=== PATIENT | male | born 1955 | race Caucasian/White ===

== ENCOUNTER 2017-08-10 19:01 | Emergency (ER) | payer SELFPAY ==
[~2017-08-10] VITALS: Ht 167.6 cm; Wt 81.8 kg
[~2017-08-10 19:01] MED LIST: NOCURR
[2017-08-10 19:29] VITALS: BP 148/82
[2017-08-10] MEDS ORDERED: IBUPROFEN 800 MG TABLET PO ONE (20:15)
== END 2017-08-10 21:50 | disposition home or self-care (01) ==
LOC: EMS 19:02
DX: S60.041A Contusion of right ring finger without damage to nail, initial encounter (principal); F17.210 Nicotine dependence, cigarettes, uncomplicated; W20.8XXA Other cause of strike by thrown, projected or falling object, initial encounter; Y93.89 Activity, other specified; Y92.89 Other specified places as the place of occurrence of the external cause; Y99.8 Other external cause status
CPT/HCPCS: 99284

== ENCOUNTER 2017-10-16 13:18 | Emergency (ER) | payer MEDICAID ==
[~2017-10-16] VITALS: Ht 170.2 cm; Wt 75.0 kg
[2017-10-16 13:46] LABS: BASOPHILS % (AUTO) 0.6 % (0.0-2.0); HEMATOCRIT 39.5 % (41-53); HEMOGLOBIN 13.6 g/dL (13.5-17.5); LYMPHOCYTES # (AUTO) 2.3 K/uL (1.0-4.8); MEAN CORPUSCULAR HEMOGLOBIN 31.8 pg (26.0-34.0); MEAN CORPUSCULAR HGB CONC 34.5 G/dL (31.0-37.0); MEAN CORPUSCULAR VOLUME 92 fL (80-100); MONOCYTES # (AUTO) 0.8 K/uL (0.1-1.0); NEUTROPHILS # (AUTO) 6.2 K/uL (1.8-7.7); NEUTROPHILS % (AUTO) 64.4 % (40.0-70.0); PLATELET COUNT (AUTO) 274 K/uL (150-450); RED BLOOD CELL COUNT(AUTO) 4.27 MIL/uL (4.50-5.90); RED CELL DISTRIBUTION WIDTH 12.3 % (11.5-14.5)
[2017-10-16 13:54] LABS: ANION GAP 8 mmol/L (8-16); CALCIUM, TOTAL 8.3 mg/dL (8.8-10.5); CARBON DIOXIDE 28 mmol/L (22-29); CHLORIDE 105 mmol/L (98-107); CREATININE 0.91 mg/dL (0.60-1.30); GLOMERULAR FILTR. RATE CALC > 60 mL/min (>60); GLUCOSE,RANDOM 95 mg/dL (70-110); POTASSIUM 4.8 mmol/L (3.5-5.1); SODIUM SERUM 141 mmol/L (136-145); UREA NITROGEN, BLOOD 24 mg/dL (7-18)
[2017-10-16 13:59] LABS: ALANINE AMINOTRANSFERASE 34 U/L (12-78); ALBUMIN 3.8 g/dL (3.4-5.0); ALKALINE PHOSPHATASE 120 U/L (46-116); ASPARTATE AMINOTRANSFERASE 26 U/L (15-37); BILIRUBIN,TOTAL 0.4 mg/dL (0.1-1.0); TOTAL PROTEIN, SERUM 7.3 g/dL (6.4-8.2)
[2017-10-16 14:14] LABS: AMPHET/METH SCREEN,URINE POSITIVE (NEGATIVE); BARBITURATE SCREEN, URINE NEGATIVE (NEGATIVE); BENZODIAZEPINES SCREEN,URINE NEGATIVE (NEGATIVE); CANNABINOID SCREEN,URINE POSITIVE (NEGATIVE); COCAINE SCREEN,URINE NEGATIVE (NEGATIVE); METHADONE SCREEN, URINE NEGATIVE (NEGATIVE); OPIATE SCREEN,URINE POSITIVE (NEGATIVE)
[2017-10-16 14:15] LABS: PHENCYCLIDINE SCREEN,URINE NEGATIVE (NEGATIVE)
[2017-10-16 17:30] VITALS: BP 139/78
[2017-10-17] MEDS ORDERED: MIRT15 PO (13:18)
== END 2017-10-16 17:44 | disposition home or self-care (01) ==
LOC: EMS 13:20
DX: F25.9 Schizoaffective disorder, unspecified (principal); F17.210 Nicotine dependence, cigarettes, uncomplicated; F11.10 Opioid abuse, uncomplicated; F32.9 Major depressive disorder, single episode, unspecified; F19.90 Other psychoactive substance use, unspecified, uncomplicated
CPT/HCPCS: 36415; 80053; 80307; 85025; 99284; 99406; G0480

== ENCOUNTER 2017-10-17 13:04 | Inpatient (IN) | payer MEDICAID ==
[~2017-10-17] VITALS: Ht 172.7 cm; Wt 80.0 kg
[2017-10-17] MEDS ORDERED: MIRT15 PO (13:18)
[2017-10-17 13:39] LABS: BASOPHILS % (AUTO) 0.8 % (0.0-2.0); EOSINOPHILS % (AUTO) 1.6 % (1.0-6.0); HEMOGLOBIN 14.1 g/dL (13.5-17.5); LYMPHOCYTES # (AUTO) 1.9 K/uL (1.0-4.8); LYMPHOCYTES % (AUTO) 21.5 % (22.0-44.0); MEAN CORPUSCULAR HEMOGLOBIN 32.2 pg (26.0-34.0); MEAN CORPUSCULAR HGB CONC 35.3 G/dL (31.0-37.0); MEAN CORPUSCULAR VOLUME 91 fL (80-100); MONOCYTES # (AUTO) 0.8 K/uL (0.1-1.0); MONOCYTES % (AUTO) 8.7 % (2.0-9.0); NEUTROPHILS # (AUTO) 5.9 K/uL (1.8-7.7); NEUTROPHILS % (AUTO) 67.4 % (40.0-70.0); PLATELET COUNT (AUTO) 298 K/uL (150-450); RED BLOOD CELL COUNT(AUTO) 4.39 MIL/uL (4.50-5.90); RED CELL DISTRIBUTION WIDTH 12.6 % (11.5-14.5)
[2017-10-17 13:49] LABS: ANION GAP 8 mmol/L (8-16); CALCIUM, TOTAL 8.5 mg/dL (8.8-10.5); CARBON DIOXIDE 26 mmol/L (22-29); CHLORIDE 103 mmol/L (98-107); CREATININE 0.79 mg/dL (0.60-1.30); GLOMERULAR FILTR. RATE CALC > 60 mL/min (>60); GLUCOSE,RANDOM 97 mg/dL (70-110); POTASSIUM 4.9 mmol/L (3.5-5.1); SODIUM SERUM 137 mmol/L (136-145); UREA NITROGEN, BLOOD 15 mg/dL (7-18)
[2017-10-17 13:53] LABS: AMPHET/METH SCREEN,URINE POSITIVE (NEGATIVE); BARBITURATE SCREEN, URINE NEGATIVE (NEGATIVE); BENZODIAZEPINES SCREEN,URINE NEGATIVE (NEGATIVE); CANNABINOID SCREEN,URINE POSITIVE (NEGATIVE); COCAINE SCREEN,URINE NEGATIVE (NEGATIVE); METHADONE SCREEN, URINE NEGATIVE (NEGATIVE); OPIATE SCREEN,URINE POSITIVE (NEGATIVE); PHENCYCLIDINE SCREEN,URINE NEGATIVE (NEGATIVE)
[2017-10-17 13:58] LABS: ALANINE AMINOTRANSFERASE 36 U/L (12-78); ALBUMIN 3.8 g/dL (3.4-5.0); ALKALINE PHOSPHATASE 116 U/L (46-116); ASPARTATE AMINOTRANSFERASE 26 U/L (15-37); BILIRUBIN,TOTAL 0.5 mg/dL (0.1-1.0); TOTAL PROTEIN, SERUM 7.3 g/dL (6.4-8.2)
[2017-10-17 18:30] VITALS: BP 162/70
[2017-10-17] MEDS: LORazepam 2 MG TABLET PO PRN (19:27)
[2017-10-17] MEDS ORDERED: LOPERAMIDE HCL 2 MG CAPSULE PO PRN (19:45)
[2017-10-17] MEDS ORDERED: BACITRACIN 28.4 GM OINTMENT TP PRN (19:45)
[2017-10-17] MEDS ORDERED: MAG HYDROX/AL HYDROX/SIMETH ES 30 ML SUSPENSION UDCUP PO PRN (19:45)
[2017-10-17] MEDS ORDERED: MAGNESIUM HYDROXIDE SUSPENSION 30 ML UDCUP PO PRN (19:45)
[2017-10-17] MEDS ORDERED: PETROLATUM,WHITE 71 GM JELLY TP PRN (19:45)
[2017-10-17] MEDS ORDERED: ONDANSETRON HCL 4 MG TABLET PO PRN (19:45)
[2017-10-17] MEDS ORDERED: ALBUTEROL SULFATE HFA 90 MCG/PUFF 8 GM INHALER IH PRN (19:45)
[2017-10-17] MEDS ORDERED: CloNIDine HCL 0.1 MG TABLET PO PRN (19:45)
[2017-10-17] MEDS ORDERED: BENZOCAINE/MENTHOL LOZENGE MM PRN (19:45)
[2017-10-17] MEDS ORDERED: PNEUMOCOCCAL VACCINE POLYVALENT 0.5 ML VIAL [PPSV23] IM ONE (20:15)
[2017-10-17 20:20] VITALS: BP 104/62
[2017-10-18 06:27] VITALS: BP 110/68
[2017-10-18] MEDS: DOCUSATE SODIUM 100 MG CAPSULE PO SCH (08:39)
[2017-10-18] MEDS: NICOTINE 21 MG/24 HOUR PATCH TD SCH (08:39)
[2017-10-18] MEDS: OMEPRAZOLE 20 MG CAPSULE PO SCH (08:39)
[2017-10-18 08:45] LABS: CHOL/HDL RATIO 2.9 (4.2-7.3); FREE T4 (FREE THYROXINE) 1.22 ng/dL (0.76-1.46); THYROID STIMULATING HORMONE 1.56 uIU/mL (0.36-3.74)
[2017-10-18 08:50] VITALS: BP 110/64
[2017-10-18] MEDS: LORazepam 2 MG TABLET PO PRN ×2 (09:08→16:18)
[2017-10-18 16:00] VITALS: BP 130/75
[2017-10-18] MEDS: HALOPERIDOL 5 MG TABLET PO PRN (16:30)
[2017-10-18] MEDS: MIRTAZAPINE 15 MG TABLET PO SCH (21:11)
[2017-10-18] MEDS: RisperiDONE 1 MG TABLET PO SCH (21:11)
[2017-10-19] VITALS: BP 122/60
[2017-10-19 08:22] VITALS: BP 122/58
[2017-10-19] MEDS: DOCUSATE SODIUM 100 MG CAPSULE PO SCH (08:32)
[2017-10-19] MEDS: NICOTINE 21 MG/24 HOUR PATCH TD SCH (08:32)
[2017-10-19] MEDS: OMEPRAZOLE 20 MG CAPSULE PO SCH (08:32)
[2017-10-19] MEDS: HALOPERIDOL 5 MG TABLET PO PRN (16:07)
[2017-10-19] MEDS: LORazepam 2 MG TABLET PO PRN (16:07)
[2017-10-19 16:37] VITALS: BP 145/69
[2017-10-19] MEDS: RisperiDONE 1 MG TABLET PO SCH (20:40)
[2017-10-19] MEDS: MIRTAZAPINE 15 MG TABLET PO SCH (20:40)
[2017-10-20 01:34] VITALS: BP 119/63
[2017-10-20] MEDS: DOCUSATE SODIUM 100 MG CAPSULE PO SCH (08:35)
[2017-10-20] MEDS: NICOTINE 21 MG/24 HOUR PATCH TD SCH (08:35)
[2017-10-20] MEDS: OMEPRAZOLE 20 MG CAPSULE PO SCH (08:35)
[2017-10-20 12:00] VITALS: BP 120/65
[2017-10-20 16:00] VITALS: BP 132/70
[2017-10-20] MEDS: IBUPROFEN 600 MG TABLET PO PRN (16:06)
[2017-10-20] MEDS: MIRTAZAPINE 15 MG TABLET PO SCH (20:28)
[2017-10-20] MEDS: RisperiDONE 1 MG TABLET PO SCH (20:29)
[2017-10-21 01:44] VITALS: BP 145/85
[2017-10-21] MEDS: ZOLPIDEM TARTRATE 10 MG TABLET PO PRN ×2 (01:53→21:52)
[2017-10-21] MEDS: LORazepam 2 MG TABLET PO PRN ×2 (03:32→16:56)
[2017-10-21] MEDS: DOCUSATE SODIUM 100 MG CAPSULE PO SCH (08:23)
[2017-10-21] MEDS: RisperiDONE 1 MG TABLET PO SCH ×2 (08:23→21:52)
[2017-10-21] MEDS: NICOTINE 21 MG/24 HOUR PATCH TD SCH (08:23)
[2017-10-21 08:24] VITALS: BP 140/69
[2017-10-21] MEDS: OMEPRAZOLE 20 MG CAPSULE PO SCH (08:24)
[2017-10-21] MEDS: ACETAMINOPHEN 325 MG TABLET PO PRN (12:19)
[2017-10-21 12:20] VITALS: BP 111/67
[2017-10-21 12:34] LABS: GLUCOMETER DEV NAME(LOC) BV2S 2; GLUCOSE,POINT OF CARE 108 MG/DL (70-110)
[2017-10-21 16:39] VITALS: BP 135/81
[2017-10-21] MEDS: IBUPROFEN 600 MG TABLET PO PRN (16:56)
[2017-10-21] MEDS: HALOPERIDOL 5 MG TABLET PO PRN (21:52)
[2017-10-21] MEDS: MIRTAZAPINE 30 MG TABLET PO SCH (21:52)
[2017-10-22 00:01] VITALS: BP 141/93
[2017-10-22] MEDS: LORazepam 2 MG TABLET PO PRN ×3 (00:05→16:18)
[2017-10-22] MEDS: NICOTINE 21 MG/24 HOUR PATCH TD SCH (08:31)
[2017-10-22] MEDS: OMEPRAZOLE 20 MG CAPSULE PO SCH (08:31)
[2017-10-22] MEDS: DOCUSATE SODIUM 100 MG CAPSULE PO SCH (08:31)
[2017-10-22] MEDS: RisperiDONE 1 MG TABLET PO SCH ×2 (08:31→21:13)
[2017-10-22 08:32] VITALS: BP 125/69
[2017-10-22 13:29] VITALS: BP 130/78
[2017-10-22] MEDS: IBUPROFEN 600 MG TABLET PO PRN (13:29)
[2017-10-22] MEDS: HALOPERIDOL 5 MG TABLET PO PRN (13:29)
[2017-10-22 16:03] VITALS: BP 130/78
[2017-10-22] MEDS: ACETAMINOPHEN 325 MG TABLET PO PRN (16:18)
[2017-10-22] MEDS: MIRTAZAPINE 30 MG TABLET PO SCH (21:13)
[2017-10-23 00:37] VITALS: BP 100/67
[2017-10-23] MEDS: ZOLPIDEM TARTRATE 10 MG TABLET PO PRN ×2 (01:21→20:16)
[2017-10-23] MEDS: LORazepam 2 MG TABLET PO PRN ×2 (01:21→16:07)
[2017-10-23 08:00] VITALS: BP 136/76
[2017-10-23] MEDS: OMEPRAZOLE 20 MG CAPSULE PO SCH (08:41)
[2017-10-23] MEDS: DOCUSATE SODIUM 100 MG CAPSULE PO SCH (08:41)
[2017-10-23] MEDS: RisperiDONE 1 MG TABLET PO SCH ×2 (08:41→20:16)
[2017-10-23] MEDS: NICOTINE 21 MG/24 HOUR PATCH TD SCH (08:42)
[2017-10-23] MEDS: IBUPROFEN 600 MG TABLET PO PRN (12:03)
[2017-10-23] MEDS: HALOPERIDOL 5 MG TABLET PO PRN (14:03)
[2017-10-23 16:12] VITALS: BP 145/84
[2017-10-23] MEDS: MIRTAZAPINE 15 MG TABLET PO SCH (20:16)
[2017-10-23] MEDS ORDERED: MIRTAZAPINE 30 MG TABLET PO SCH (21:00)
[2017-10-24 01:29] VITALS: BP 131/75
[2017-10-24] MEDS: HALOPERIDOL 5 MG TABLET PO PRN ×2 (01:31→16:02)
[2017-10-24] MEDS: LORazepam 2 MG TABLET PO PRN ×2 (03:21→10:46)
[2017-10-24 08:19] VITALS: BP 115/69
[2017-10-24] MEDS: DOCUSATE SODIUM 100 MG CAPSULE PO SCH (09:26)
[2017-10-24] MEDS: RisperiDONE 1 MG TABLET PO SCH ×2 (09:26→20:31)
[2017-10-24] MEDS: OMEPRAZOLE 20 MG CAPSULE PO SCH (09:26)
[2017-10-24] MEDS: NICOTINE 21 MG/24 HOUR PATCH TD SCH (09:31)
[2017-10-24 16:31] VITALS: BP 126/83
[2017-10-24 19:06] VITALS: BP 128/79
[2017-10-24] MEDS: IBUPROFEN 600 MG TABLET PO PRN (19:06)
[2017-10-24] MEDS: MIRTAZAPINE 15 MG TABLET PO SCH (20:31)
[2017-10-24] MEDS: ZOLPIDEM TARTRATE 10 MG TABLET PO PRN (22:53)
[2017-10-25 01:45] VITALS: BP 117/76
[2017-10-25] MEDS: HALOPERIDOL 5 MG TABLET PO PRN ×2 (03:21→16:22)
[2017-10-25] MEDS: DOCUSATE SODIUM 100 MG CAPSULE PO SCH (08:29)
[2017-10-25] MEDS: OMEPRAZOLE 20 MG CAPSULE PO SCH (08:30)
[2017-10-25] MEDS: NICOTINE 21 MG/24 HOUR PATCH TD SCH (08:30)
[2017-10-25] MEDS: RisperiDONE 1 MG TABLET PO SCH ×2 (08:30→20:48)
[2017-10-25 08:31] VITALS: BP 116/69
[2017-10-25 11:19] VITALS: BP 122/73
[2017-10-25] MEDS: LORazepam 2 MG TABLET PO PRN (11:19)
[2017-10-25] MEDS: IBUPROFEN 600 MG TABLET PO PRN (11:19)
[2017-10-25 16:02] VITALS: BP 134/77
[2017-10-25] MEDS: MIRTAZAPINE 15 MG TABLET PO SCH (20:47)
[2017-10-25] MEDS ORDERED: MIRTAZAPINE 30 MG TABLET PO SCH (21:00)
[2017-10-25] MEDS ORDERED: TraZODone HCL 50 MG TABLET PO SCH (21:00)
[2017-10-26 01:55] VITALS: BP 126/76
[2017-10-26 08:26] VITALS: BP 109/62
[2017-10-26] MEDS: OMEPRAZOLE 20 MG CAPSULE PO SCH (08:28)
[2017-10-26] MEDS: DOCUSATE SODIUM 100 MG CAPSULE PO SCH (08:29)
[2017-10-26] MEDS: RisperiDONE 1 MG TABLET PO SCH (08:29)
[2017-10-26] MEDS: NICOTINE 21 MG/24 HOUR PATCH TD SCH (08:32)
[2017-10-26 10:28] VITALS: BP 136/74
[2017-10-26] MEDS: IBUPROFEN 600 MG TABLET PO PRN (10:30)
[2017-10-26] MEDS ORDERED: RISP1 PO (12:27)
[2017-10-26] MEDS ORDERED: TRAZ-144 PO (12:27)
== END 2017-10-26 12:15 | disposition home or self-care (01) | DRG 751 ==
LOC: EMS 13:07 → B2S 17:06
DX: F33.3 Major depressive disorder, recurrent, severe with psychotic symptoms (principal); R45.851 Suicidal ideations; E83.51 Hypocalcemia; F41.0 Panic disorder [episodic paroxysmal anxiety]; F11.10 Opioid abuse, uncomplicated; F12.90 Cannabis use, unspecified, uncomplicated; F15.10 Other stimulant abuse, uncomplicated; F17.200 Nicotine dependence, unspecified, uncomplicated; Z71.6 Tobacco abuse counseling; Z59.0 Homelessness; Z71.51 Drug abuse counseling and surveillance of drug abuser; Z90.49 Acquired absence of other specified parts of digestive tract
CPT/HCPCS: 82306; 84439; 84443; 99285; G0480

== ENCOUNTER 2019-03-28 15:29 | Emergency (ER) | payer MEDICAID, MEDICARE, OTHER ==
[~2019-03-28] VITALS: Ht 172.7 cm; Wt 72.7 kg
[~2019-03-28 15:29] MED LIST changes: +MIRT15 PO; -NOCURR; +RISP1 PO; +TRAZ-252 PO
[2019-03-28 17:27] VITALS: BP 148/80
[2019-03-28] MEDS ORDERED: SULFAMETHOX/TRIMETH DS 800-160 MG/TABLET PO ONE (17:45)
[2019-03-28] MEDS ORDERED: CEPHALEXIN MONOHYDRATE 500 MG CAPSULE PO ONE (17:45)
== END 2019-03-28 18:08 | disposition home or self-care (01) ==
LOC: EMS 15:30
DX: S80.822A Blister (nonthermal), left lower leg, initial encounter (principal); S80.821A Blister (nonthermal), right lower leg, initial encounter; L03.116 Cellulitis of left lower limb; L03.115 Cellulitis of right lower limb; F17.210 Nicotine dependence, cigarettes, uncomplicated; F11.90 Opioid use, unspecified, uncomplicated; F15.90 Other stimulant use, unspecified, uncomplicated; Z98.890 Other specified postprocedural states; X58.XXXA Exposure to other specified factors, initial encounter; Y93.89 Activity, other specified; Y92.89 Other specified places as the place of occurrence of the external cause; Y99.8 Other external cause status

== ENCOUNTER 2019-07-11 01:57 | Emergency (ER) | payer MEDICARE ==
[~2019-07-11] VITALS: Ht 170.2 cm; Wt 72.7 kg
[2019-07-11 02:01] VITALS: BP 156/65
[2019-07-11] MEDS ORDERED: DiphenhydrAMINE HCL 25 MG CAPSULE PO ONE (02:15)
== END 2019-07-11 02:32 | disposition home or self-care (01) ==
LOC: EMS 01:59
DX: B86 Scabies (principal); F17.210 Nicotine dependence, cigarettes, uncomplicated; F19.90 Other psychoactive substance use, unspecified, uncomplicated; F11.90 Opioid use, unspecified, uncomplicated
CPT/HCPCS: 99406

== ENCOUNTER 2019-07-16 21:13 | Emergency (ER) | payer MEDICARE ==
[~2019-07-16] VITALS: Ht 170.2 cm; Wt 77.3 kg
[2019-07-17] MEDS ORDERED: LORATADINE 10 MG TABLET PO ONE (01:30)
[2019-07-17] MEDS ORDERED: PERMETHRIN 5% 60 GM CREAM TP ONE (01:30)
[2019-07-17 01:54] VITALS: BP 145/91
== END 2019-07-17 01:55 | disposition home or self-care (01) ==
LOC: EMS 21:15
DX: B86 Scabies (principal); F11.90 Opioid use, unspecified, uncomplicated; F15.90 Other stimulant use, unspecified, uncomplicated; F17.210 Nicotine dependence, cigarettes, uncomplicated; Z90.49 Acquired absence of other specified parts of digestive tract; Z98.890 Other specified postprocedural states; Z59.0 Homelessness

== ENCOUNTER 2019-08-12 02:37 | Emergency (ER) | payer MEDICARE, SELFPAY ==
[~2019-08-12] VITALS: Ht 170.2 cm; Wt 70.5 kg
[2019-08-12 02:56] VITALS: BP 137/72
[2019-08-12] MEDS ORDERED: KETOROLAC TROMETHAMINE 30 MG/ML VIAL IM ONE (03:00)
== END 2019-08-12 04:07 | disposition home or self-care (01) ==
LOC: EMS 02:38
DX: S60.221A Contusion of right hand, initial encounter (principal); F41.9 Anxiety disorder, unspecified; F17.210 Nicotine dependence, cigarettes, uncomplicated; F11.90 Opioid use, unspecified, uncomplicated; F19.90 Other psychoactive substance use, unspecified, uncomplicated; Z59.0 Homelessness; Z86.73 Personal history of transient ischemic attack (TIA), and cerebral infarction without residual deficits; W22.01XA Walked into wall, initial encounter; Y93.89 Activity, other specified; Y92.89 Other specified places as the place of occurrence of the external cause; Y99.8 Other external cause status
CPT/HCPCS: 73130; 96372; 99283; J1885

== ENCOUNTER 2019-08-18 07:41 | Emergency (ER) | payer MEDICARE, SELFPAY ==
[~2019-08-18] VITALS: Ht 172.7 cm; Wt 70.5 kg
[2019-08-18] MEDS ORDERED: ACETAMINOPHEN 500 MG TABLET PO ONE (08:45)
[2019-08-18 09:28] VITALS: BP 144/88
== END 2019-08-18 09:56 | disposition left against medical advice (07) ==
LOC: EMS 07:46
DX: B34.9 Viral infection, unspecified (principal); R51 Headache; R19.7 Diarrhea, unspecified; F41.9 Anxiety disorder, unspecified; I10 Essential (primary) hypertension; F17.210 Nicotine dependence, cigarettes, uncomplicated; F11.90 Opioid use, unspecified, uncomplicated; F19.90 Other psychoactive substance use, unspecified, uncomplicated; Z86.73 Personal history of transient ischemic attack (TIA), and cerebral infarction without residual deficits

== ENCOUNTER 2020-10-27 11:44 | Emergency (ER) | payer MEDICARE, MEDICAID ==
[~2020-10-27] VITALS: Ht 170.2 cm; Wt 68.2 kg
[2020-10-27 11:52] VITALS: BP 131/82
== END 2020-10-27 12:10 | disposition left against medical advice (07) ==
LOC: EMS 11:47
DX: R44.0 Auditory hallucinations (principal); Z53.21 Procedure and treatment not carried out due to patient leaving prior to being seen by health care provider

== ENCOUNTER 2023-08-15 20:02 | Emergency (ER) | payer MEDICARE, MEDICAID ==
[~2023-08-15] VITALS: Ht 172.7 cm; Wt 75.0 kg
[2023-08-15 20:16] VITALS: BP 151/85; PULSE 90; RESP 18; TEMP 98.5
[2023-08-15 21:49] LABS: BASOPHILS % (AUTO) 0.9 % (0.0-2.0); EOSINOPHILS % (AUTO) 1.7 % (1.0-6.0); HEMATOCRIT 42.9 % (41-53); HEMOGLOBIN 14.4 g/dL (13.5-17.5); LYMPHOCYTES # (AUTO) 2.7 K/uL (1.0-4.8); LYMPHOCYTES % (AUTO) 25.3 % (22.0-44.0); MEAN CORPUSCULAR HEMOGLOBIN 31.6 pg (26.0-34.0); MEAN CORPUSCULAR HGB CONC 33.6 G/dL (31.0-37.0); MEAN CORPUSCULAR VOLUME 94 fL (80-100); MONOCYTES # (AUTO) 0.8 K/uL (0.1-1.0); MONOCYTES % (AUTO) 7.4 % (2.0-9.0); NEUTROPHILS # (AUTO) 6.8 K/uL (1.8-7.7); NEUTROPHILS % (AUTO) 64.7 % (40.0-70.0); PLATELET COUNT (AUTO) 347 K/uL (150-450); RED BLOOD CELL COUNT(AUTO) 4.57 MIL/uL (4.50-5.90); RED CELL DISTRIBUTION WIDTH 13.7 % (11.5-14.5); WHITE BLOOD COUNT (AUTO) 10.6 K/uL (4.5-11.0)
[2023-08-15 22:01] LABS: ANION GAP 10 mmol/L (8-16); CARBON DIOXIDE 27 mmol/L (22-29); CHLORIDE 106 mmol/L (98-107); CREATININE 0.95 mg/dL (0.60-1.30); GLUCOSE,RANDOM 102 mg/dL (70-110); POTASSIUM 4.7 mmol/L (3.5-5.1); SODIUM SERUM 143 mmol/L (136-145); UREA NITROGEN, BLOOD 30 mg/dL (7-18)
[2023-08-15 22:02] LABS: CALCIUM, TOTAL 9.1 mg/dL (8.8-10.5); GLOMERULAR FILTR. RATE CALC > 60 mL/min (>60)
[2023-08-15 22:07] LABS: ALANINE AMINOTRANSFERASE 25 U/L (12-78); ALKALINE PHOSPHATASE 123 U/L (46-116); ASPARTATE AMINOTRANSFERASE 24 U/L (15-37); BILIRUBIN,TOTAL 0.3 mg/dL (0.1-1.0); LIPASE 28 U/L (16-77); TOTAL PROTEIN, SERUM 7.8 g/dL (6.4-8.2)
[2023-08-15 22:08] LABS: ALCOHOL, BLOOD (SERUM) 30 mg/dL (0-10)
== END 2023-08-16 02:43 | disposition home or self-care (01) ==
LOC: EMS 20:02
DX: F32.A Depression, unspecified (principal); F10.10 Alcohol abuse, uncomplicated; I10 Essential (primary) hypertension; F41.9 Anxiety disorder, unspecified; F17.210 Nicotine dependence, cigarettes, uncomplicated; F15.90 Other stimulant use, unspecified, uncomplicated; Z86.73 Personal history of transient ischemic attack (TIA), and cerebral infarction without residual deficits; Z90.49 Acquired absence of other specified parts of digestive tract
CPT/HCPCS: 99284; 80053; 83690; 85025; 36415; G0480

== ENCOUNTER 2023-08-27 02:08 | Emergency (ER) | payer MEDICARE, MEDICAID ==
[~2023-08-27] VITALS: Ht 172.7 cm; Wt 72.0 kg
[2023-08-27 02:16] VITALS: BP 132/68; PULSE 91; RESP 16; TEMP 98.2
[2023-08-27 03:17] LABS: PH,URINE DRUG SCREEN 5.5 (5.0-8.0)
[2023-08-27 03:20] LABS: AMPHET/METH SCREEN,URINE POSITIVE (NEGATIVE); BARBITURATE SCREEN, URINE NEGATIVE (NEGATIVE); BENZODIAZEPINES SCREEN,URINE NEGATIVE (NEGATIVE); CANNABINOID SCREEN,URINE POSITIVE (NEGATIVE); COCAINE SCREEN,URINE NEGATIVE (NEGATIVE); METHADONE SCREEN, URINE NEGATIVE (NEGATIVE); OPIATE SCREEN,URINE NEGATIVE (NEGATIVE); PHENCYCLIDINE SCREEN,URINE NEGATIVE (NEGATIVE)
[2023-08-27 03:38] LABS: ALCOHOL, URINE DRUG SCREEN NEGATIVE (NEGATIVE)
[2023-08-27 04:28] LABS: COVID AG,FIA SOURCE NASAL SWAB
[2023-08-27 04:49] LABS: SARS-COV2 (COVID) ANTIGEN,FIA Negative (Negative)
[2023-08-27 04:49] LABS: BASOPHILS % (AUTO) 0.7 % (0.0-2.0); EOSINOPHILS % (AUTO) 2.4 % (1.0-6.0); HEMATOCRIT 36.2 % (41-53); HEMOGLOBIN 12.5 g/dL (13.5-17.5); LYMPHOCYTES # (AUTO) 1.5 K/uL (1.0-4.8); LYMPHOCYTES % (AUTO) 23.3 % (22.0-44.0); MEAN CORPUSCULAR HGB CONC 34.5 G/dL (31.0-37.0); MEAN CORPUSCULAR VOLUME 93 fL (80-100); MONOCYTES # (AUTO) 0.5 K/uL (0.1-1.0); MONOCYTES % (AUTO) 8.2 % (2.0-9.0); NEUTROPHILS # (AUTO) 4.2 K/uL (1.8-7.7); NEUTROPHILS % (AUTO) 65.4 % (40.0-70.0); PLATELET COUNT (AUTO) 283 K/uL (150-450); RED CELL DISTRIBUTION WIDTH 13.3 % (11.5-14.5); WHITE BLOOD COUNT (AUTO) 6.5 K/uL (4.5-11.0)
[2023-08-27 05:09] LABS: ANION GAP 10 mmol/L (8-16); CALCIUM, TOTAL 8.3 mg/dL (8.8-10.5); CARBON DIOXIDE 24 mmol/L (22-29); CHLORIDE 106 mmol/L (98-107); CREATININE 1.03 mg/dL (0.60-1.30); GLOMERULAR FILTR. RATE CALC > 60 mL/min (>60); GLUCOSE,RANDOM 129 mg/dL (70-110); SODIUM SERUM 140 mmol/L (136-145); UREA NITROGEN, BLOOD 33 mg/dL (7-18)
[2023-08-27 05:14] LABS: ALANINE AMINOTRANSFERASE 28 U/L (12-78); ALBUMIN 3.3 g/dL (3.4-5.0); ALKALINE PHOSPHATASE 105 U/L (46-116); ASPARTATE AMINOTRANSFERASE 25 U/L (15-37); BILIRUBIN,TOTAL 0.3 mg/dL (0.1-1.0)
[2023-08-27 05:19] LABS: ALCOHOL, BLOOD (SERUM) < 3 mg/dL (0-10)
== END 2023-08-27 06:17 | disposition home or self-care (01) ==
LOC: EMS 02:10
DX: F29 Unspecified psychosis not due to a substance or known physiological condition (principal); F10.20 Alcohol dependence, uncomplicated; F41.9 Anxiety disorder, unspecified; I10 Essential (primary) hypertension; F17.210 Nicotine dependence, cigarettes, uncomplicated; F15.90 Other stimulant use, unspecified, uncomplicated; Z90.49 Acquired absence of other specified parts of digestive tract; Z20.822 Contact with and (suspected) exposure to COVID-19; Y90.9 Presence of alcohol in blood, level not specified
CPT/HCPCS: 99284; 87426; 80053; 85025; 36415; 80307; G0480

== ENCOUNTER 2023-09-19 06:04 | Inpatient (IN) | payer MEDICARE, MEDICAID ==
[~2023-09-19] VITALS: Ht 180.3 cm; Wt 76.8 kg
[2023-09-19 06:38] LABS: BASOPHILS % (AUTO) 0.4 % (0.0-2.0); EOSINOPHILS % (AUTO) 0.4 % (1.0-6.0); HEMATOCRIT 42.9 % (41-53); HEMOGLOBIN 14.5 g/dL (13.5-17.5); LYMPHOCYTES # (AUTO) 0.9 K/uL (1.0-4.8); MEAN CORPUSCULAR HEMOGLOBIN 31.7 pg (26.0-34.0); MEAN CORPUSCULAR HGB CONC 33.9 G/dL (31.0-37.0); MEAN CORPUSCULAR VOLUME 94 fL (80-100); MONOCYTES # (AUTO) 0.6 K/uL (0.1-1.0); MONOCYTES % (AUTO) 6.8 % (2.0-9.0); NEUTROPHILS % (AUTO) 81.4 % (40.0-70.0); PLATELET COUNT (AUTO) 302 K/uL (150-450); RED BLOOD CELL COUNT(AUTO) 4.58 MIL/uL (4.50-5.90); RED CELL DISTRIBUTION WIDTH 13.4 % (11.5-14.5); WHITE BLOOD COUNT (AUTO) 8.6 K/uL (4.5-11.0)
[2023-09-19 06:49] LABS: ANION GAP 13 mmol/L (8-16); CALCIUM, TOTAL 9.4 mg/dL (8.8-10.5); CARBON DIOXIDE 23 mmol/L (22-29); CHLORIDE 102 mmol/L (98-107); CREATININE 2.11 mg/dL (0.60-1.30); GLOMERULAR FILTR. RATE CALC 31 mL/min (>60); GLUCOSE,RANDOM 137 mg/dL (70-110); SODIUM SERUM 138 mmol/L (136-145); UREA NITROGEN, BLOOD 50 mg/dL (7-18)
[2023-09-19 06:55] LABS: ALANINE AMINOTRANSFERASE 37 U/L (12-78); ALBUMIN 4.2 g/dL (3.4-5.0); ALKALINE PHOSPHATASE 127 U/L (46-116); ASPARTATE AMINOTRANSFERASE 31 U/L (15-37); BILIRUBIN,TOTAL 0.5 mg/dL (0.1-1.0); TOTAL PROTEIN, SERUM 7.9 g/dL (6.4-8.2)
[2023-09-19 06:58] LABS: ALCOHOL, BLOOD (SERUM) < 3 mg/dL (0-10)
[2023-09-19] MEDS ORDERED: ACETAMINOPHEN 325 MG TABLET PO PRN ×2 (07:15→08:30)
[2023-09-19] MEDS ORDERED: ONDANSETRON HCL 4 MG/2 ML VIAL IVP PRN ×2 (07:15→08:30)
[2023-09-19] MEDS ORDERED: 0.9% SODIUM CHLORIDE 10 ML SYRINGE IVP PRN (07:15)
[2023-09-19] MEDS: SODIUM CHLORIDE 0.9% 1,000 ML IV ONE (07:22)
[2023-09-19 07:48] LABS: COVID AG,FIA SOURCE NASAL SWAB
[2023-09-19 08:11] LABS: SARS-COV2 (COVID) ANTIGEN,FIA Negative (Negative)
[2023-09-19] MEDS: DOCUSATE SODIUM 100 MG CAPSULE PO SCH (09:00)
[2023-09-19] MEDS: FAMOTIDINE 20 MG TABLET PO SCH (09:00)
[2023-09-19] MEDS: SODIUM CHLORIDE 0.9% 1,000 ML IV SCH (09:03)
[2023-09-19 09:27] LABS: CREATINE KINASE, TOTAL ONLY 264 U/L (39-308)
[2023-09-19] MEDS: HEPARIN SODIUM,PORCINE 5,000 UNITS/ML VIAL SQ SCH (16:00)
[2023-09-19 21:45] VITALS: BP 128/59; PULSE 70; RESP 20; TEMP 98.4
[2023-09-19 22:16] LABS: APPEARANCE,URINE CLEAR (CLEAR); BILIRUBIN,URINE NEGATIVE (NEGATIVE); COLOR,URINE LIGHT YELLOW (YELLOW); GLUCOSE, URINE (UA) TRACE mg/dL (NEGATIVE); KETONES,URINE NEGATIVE (NEGATIVE); LEUKOCYTE ESTERASE ,URINE NEGATIVE (NEGATIVE); NITRATE,URINE NEGATIVE (NEGATIVE); OCCULT BLOOD,URINE NEGATIVE (NEGATIVE); PH,URINE 5.5 (5.0-8.0); PROTEIN,URINE TRACE mg/dL (NEGATIVE); SPECIFIC GRAVITIY, URINE 1.025 (1.003-1.030); UROBILINOGEN,URINE <=1.0 mg/dL (<=1.0)
[2023-09-19 22:21] LABS: ALCOHOL, URINE DRUG SCREEN NEGATIVE (NEGATIVE); AMPHET/METH SCREEN,URINE POSITIVE (NEGATIVE); BARBITURATE SCREEN, URINE NEGATIVE (NEGATIVE); BENZODIAZEPINES SCREEN,URINE NEGATIVE (NEGATIVE); CANNABINOID SCREEN,URINE NEGATIVE (NEGATIVE); COCAINE SCREEN,URINE NEGATIVE (NEGATIVE); METHADONE SCREEN, URINE NEGATIVE (NEGATIVE); OPIATE SCREEN,URINE NEGATIVE (NEGATIVE); PHENCYCLIDINE SCREEN,URINE NEGATIVE (NEGATIVE)
[2023-09-20 04:33] VITALS: BP 101/58; PULSE 65; RESP 18; TEMP 98.3
[2023-09-20 07:44] LABS: BASOPHILS % (AUTO) 0.9 % (0.0-2.0); EOSINOPHILS % (AUTO) 2.8 % (1.0-6.0); HEMATOCRIT 37.8 % (41-53); HEMOGLOBIN 12.8 g/dL (13.5-17.5); LYMPHOCYTES # (AUTO) 1.5 K/uL (1.0-4.8); LYMPHOCYTES % (AUTO) 22.1 % (22.0-44.0); MEAN CORPUSCULAR HEMOGLOBIN 31.6 pg (26.0-34.0); MEAN CORPUSCULAR HGB CONC 33.8 G/dL (31.0-37.0); MEAN CORPUSCULAR VOLUME 94 fL (80-100); MONOCYTES # (AUTO) 0.6 K/uL (0.1-1.0); MONOCYTES % (AUTO) 8.8 % (2.0-9.0); NEUTROPHILS # (AUTO) 4.4 K/uL (1.8-7.7); NEUTROPHILS % (AUTO) 65.4 % (40.0-70.0); PLATELET COUNT (AUTO) 258 K/uL (150-450); RED BLOOD CELL COUNT(AUTO) 4.04 MIL/uL (4.50-5.90); RED CELL DISTRIBUTION WIDTH 13.1 % (11.5-14.5); WHITE BLOOD COUNT (AUTO) 6.8 K/uL (4.5-11.0)
[2023-09-20 07:55] VITALS: BP 111/75; PULSE 75; RESP 20; TEMP 97.9
[2023-09-20 07:55] LABS: ANION GAP 9 mmol/L (8-16); CALCIUM, TOTAL 8.8 mg/dL (8.8-10.5); CARBON DIOXIDE 23 mmol/L (22-29); CHLORIDE 105 mmol/L (98-107); CREATININE 1.11 mg/dL (0.60-1.30); GLOMERULAR FILTR. RATE CALC > 60 mL/min (>60); GLUCOSE,RANDOM 106 mg/dL (70-110); POTASSIUM 4.6 mmol/L (3.5-5.1); SODIUM SERUM 137 mmol/L (136-145); UREA NITROGEN, BLOOD 34 mg/dL (7-18)
[2023-09-20 09:02] VITALS: O2SAT 98
[2023-09-20 15:52] VITALS: BP 148/81; PULSE 76; RESP 20; TEMP 97.9
[2023-09-21 14:07] LABS: HEPATITIS C AB (EIA) Non Reactive (Non Reactive)
== END 2023-09-20 16:45 | disposition home or self-care (01) | DRG 682 ==
LOC: EMS 06:05 → AHU 07:13 → 6S 21:34
PROVIDERS: ADMIT Internal Medicine; ATTEND Internal Medicine
DX: N17.9 Acute kidney failure, unspecified (principal); G92.8 Other toxic encephalopathy; F19.10 Other psychoactive substance abuse, uncomplicated; F25.9 Schizoaffective disorder, unspecified; Z20.822 Contact with and (suspected) exposure to COVID-19; F41.9 Anxiety disorder, unspecified; F12.90 Cannabis use, unspecified, uncomplicated; F10.20 Alcohol dependence, uncomplicated; F14.90 Cocaine use, unspecified, uncomplicated; I10 Essential (primary) hypertension; Z82.49 Family history of ischemic heart disease and other diseases of the circulatory system; Z87.891 Personal history of nicotine dependence
CPT/HCPCS: 80048; 80053; 80307; 81003; 82550; 85025; 86803; 87340; 99285; G0480; J1644; J7030

== ENCOUNTER 2023-11-21 20:32 | Emergency (ER) | payer MEDICARE, MEDICAID ==
[~2023-11-21] VITALS: Ht 170.2 cm; Wt 78.0 kg
[~2023-11-21 20:32] MED LIST changes: +ESCI-8 PO; -MIRT15 PO; +QUET100T34 PO; -RISP1 PO; -TRAZ-252 PO
[2023-11-21 20:34] VITALS: BP 107/63; PULSE 98; RESP 18; TEMP 98.1
[2023-11-21] MEDS ORDERED: IBUP-1554 PO (23:14)
[2023-11-21] MEDS ORDERED: QUET100T34 PO (23:14)
[2023-11-21] MEDS ORDERED: ACET-66 PO (23:14)
[2023-11-21] MEDS ORDERED: ESCI-8 PO (23:14)
== END 2023-11-21 23:34 | disposition home or self-care (01) ==
LOC: EMS 20:32
DX: S00.83XA Contusion of other part of head, initial encounter (principal); F32.9 Major depressive disorder, single episode, unspecified; F25.9 Schizoaffective disorder, unspecified; F41.9 Anxiety disorder, unspecified; I10 Essential (primary) hypertension; F17.210 Nicotine dependence, cigarettes, uncomplicated; F12.90 Cannabis use, unspecified, uncomplicated; F14.90 Cocaine use, unspecified, uncomplicated; F15.90 Other stimulant use, unspecified, uncomplicated; Z59.00 Homelessness unspecified; Y08.89XA Assault by other specified means, initial encounter; Y93.89 Activity, other specified; Y92.89 Other specified places as the place of occurrence of the external cause; Y99.8 Other external cause status
CPT/HCPCS: 99282; Z7502

== ENCOUNTER 2023-12-19 08:40 | Inpatient (IN) | payer MEDICARE, MEDICAID ==
[~2023-12-19] VITALS: Ht 172.7 cm; Wt 77.6 kg
[~2023-12-19 08:40] MED LIST changes: +ACET-66 PO; +IBUP-1554 PO
[2023-12-19 09:18] LABS: COVID AG,FIA SOURCE NASAL SWAB
[2023-12-19 09:23] LABS: BASOPHILS % (AUTO) 1.1 % (0.0-2.0); EOSINOPHILS % (AUTO) 4.8 % (1.0-6.0); HEMATOCRIT 41.8 % (41-53); HEMOGLOBIN 14.2 g/dL (13.5-17.5); LYMPHOCYTES # (AUTO) 1.2 K/uL (1.0-4.8); LYMPHOCYTES % (AUTO) 20.8 % (22.0-44.0); MEAN CORPUSCULAR HEMOGLOBIN 31.1 pg (26.0-34.0); MEAN CORPUSCULAR HGB CONC 33.8 G/dL (31.0-37.0); MEAN CORPUSCULAR VOLUME 92 fL (80-100); MONOCYTES # (AUTO) 0.5 K/uL (0.1-1.0); MONOCYTES % (AUTO) 8.1 % (2.0-9.0); NEUTROPHILS # (AUTO) 3.8 K/uL (1.8-7.7); NEUTROPHILS % (AUTO) 65.2 % (40.0-70.0); PLATELET COUNT (AUTO) 303 K/uL (150-450); RED BLOOD CELL COUNT(AUTO) 4.55 MIL/uL (4.50-5.90); RED CELL DISTRIBUTION WIDTH 13.4 % (11.5-14.5); WHITE BLOOD COUNT (AUTO) 5.8 K/uL (4.5-11.0)
[2023-12-19 09:43] LABS: SARS-COV2 (COVID) ANTIGEN,FIA Negative (Negative)
[2023-12-19 09:45] LABS: ALCOHOL, BLOOD (SERUM) < 3 mg/dL (0-10)
[2023-12-19 10:03] LABS: ANION GAP 9 mmol/L (8-16); CALCIUM, TOTAL 8.6 mg/dL (8.8-10.5); CARBON DIOXIDE 26 mmol/L (22-29); CHLORIDE 100 mmol/L (98-107); CREATININE 1.19 mg/dL (0.60-1.30); GLOMERULAR FILTR. RATE CALC > 60 mL/min (>60); GLUCOSE,RANDOM 102 mg/dL (70-110); POTASSIUM 3.6 mmol/L (3.5-5.1); SODIUM SERUM 135 mmol/L (136-145); UREA NITROGEN, BLOOD 19 mg/dL (7-18)
[2023-12-19 10:09] LABS: ALANINE AMINOTRANSFERASE 23 U/L (12-78); ALBUMIN 3.3 g/dL (3.4-5.0); ALKALINE PHOSPHATASE 108 U/L (46-116); ASPARTATE AMINOTRANSFERASE 19 U/L (15-37); BILIRUBIN,TOTAL 0.5 mg/dL (0.1-1.0); TOTAL PROTEIN, SERUM 6.8 g/dL (6.4-8.2)
[2023-12-19 11:12] LABS: APPEARANCE,URINE CLEAR (CLEAR); BILIRUBIN,URINE NEGATIVE (NEGATIVE); COLOR,URINE YELLOW (YELLOW); GLUCOSE, URINE (UA) NEGATIVE (NEGATIVE); KETONES,URINE TRACE mg/dL (NEGATIVE); LEUKOCYTE ESTERASE ,URINE TRACE (NEGATIVE); NITRATE,URINE NEGATIVE (NEGATIVE); OCCULT BLOOD,URINE NEGATIVE (NEGATIVE); PH,URINE 5.5 (5.0-8.0); PROTEIN,URINE 30-70 mg/dL (NEGATIVE)
[2023-12-19 11:13] LABS: RBC,URINE None Seen /HPF (0-2); WBC,URINE 0-2 /HPF (0-5)
[2023-12-19 11:14] LABS: BACTERIA,URINE None Seen /HPF (None Seen)
[2023-12-19 11:20] LABS: ALCOHOL, URINE DRUG SCREEN NEGATIVE (NEGATIVE); AMPHET/METH SCREEN,URINE POSITIVE (NEGATIVE); BARBITURATE SCREEN, URINE NEGATIVE (NEGATIVE); BENZODIAZEPINES SCREEN,URINE NEGATIVE (NEGATIVE); CANNABINOID SCREEN,URINE POSITIVE (NEGATIVE); COCAINE SCREEN,URINE NEGATIVE (NEGATIVE); METHADONE SCREEN, URINE NEGATIVE (NEGATIVE); OPIATE SCREEN,URINE POSITIVE (NEGATIVE); PHENCYCLIDINE SCREEN,URINE NEGATIVE (NEGATIVE)
[2023-12-19 11:34] LABS: PH,URINE DRUG SCREEN 5.5 (5.0-8.0)
[2023-12-19] MEDS: HALOPERIDOL 5 MG TABLET PO PRN (13:41)
[2023-12-19] MEDS: LORazepam 2 MG TABLET PO PRN (13:41)
[2023-12-19] MEDS: -PHARMACY VACCINE NOTE- MISC ONE (23:45)
[2023-12-20 00:03] VITALS: BP 95/57; PULSE 83; RESP 20; TEMP 97.8; O2SAT 98
[2023-12-20 00:05] VITALS: BP 95/57; PULSE 83; RESP 20; TEMP 97.8; O2SAT 98
[2023-12-20 09:42] VITALS: BP 108/75; PULSE 76; RESP 16; TEMP 97.9; O2SAT 100
[2023-12-20] MEDS ORDERED: LOPERAMIDE HCL 2 MG CAPSULE PO PRN (10:15)
[2023-12-20] MEDS ORDERED: ALBUTEROL SULFATE HFA 90 MCG/PUFF 8 GM INHALER IH PRN (10:15)
[2023-12-20] MEDS ORDERED: MAG HYDROX/ALUMINUM HYD/SIMETH ES 30 ML SUSPENSION UDCUP PO PRN (10:15)
[2023-12-20] MEDS ORDERED: GuaiFENesin/D-METHORPHAN [SUGAR-FREE] 200-20MG/10 ML SYRUP UDCUP PO PRN (10:15)
[2023-12-20] MEDS ORDERED: ONDANSETRON 4 MG TABLET PO PRN (10:15)
[2023-12-20] MEDS ORDERED: DOCUSATE SODIUM 100 MG CAPSULE PO PRN (10:15)
[2023-12-20] MEDS ORDERED: CloNIDine HCL 0.1 MG TABLET PO PRN (10:15)
[2023-12-20] MEDS ORDERED: PETROLATUM,WHITE 28 GM JELLY TP PRN (10:15)
[2023-12-20 20:12] VITALS: BP 149/64; PULSE 83; RESP 19; TEMP 98.5; O2SAT 98
[2023-12-20] MEDS: QUEtiapine FUMARATE 100 MG TABLET PO SCH (21:26)
[2023-12-21 08:11] LABS: THYROID STIMULATING HORMONE 1.33 uIU/mL (0.36-3.74)
[2023-12-21 08:29] LABS: HEMOGLOBIN A1C 5.5 % (3.8-5.6)
[2023-12-21 09:00] VITALS: BP 118/54; PULSE 78; RESP 18; TEMP 97.5; O2SAT 100
[2023-12-21] MEDS: QUEtiapine FUMARATE 25 MG TABLET PO SCH (09:51)
[2023-12-21 12:55] LABS: CHOL/HDL RATIO 2.6 (4.2-7.3)
[2023-12-21 20:56] VITALS: BP 138/49; PULSE 68; RESP 18; TEMP 98.6; O2SAT 100
[2023-12-22 10:53] VITALS: BP 135/92; PULSE 78; RESP 17; TEMP 98.2; O2SAT 99
[2023-12-22] MEDS: MAGNESIUM HYDROXIDE SUSPENSION 30 ML UDCUP PO PRN (15:27)
[2023-12-22 21:24] VITALS: BP 150/56; PULSE 73; RESP 18; TEMP 98.3; O2SAT 97
[2023-12-23 08:00] VITALS: BP 104/64; PULSE 71; RESP 18; TEMP 97.5; O2SAT 96
[2023-12-23 08:26] VITALS: BP 108/58; PULSE 80; RESP 17; TEMP 97.6
[2023-12-23] MEDS: ACETAMINOPHEN 325 MG TABLET PO PRN (08:26)
[2023-12-23 09:26] VITALS: BP 121/65; PULSE 76; RESP 18; TEMP 97.6; O2SAT 0
[2023-12-23 21:39] VITALS: BP 120/67; PULSE 78; RESP 18; TEMP 97.5; O2SAT 0
[2023-12-24 09:02] VITALS: BP 135/78; PULSE 81; RESP 17; TEMP 97.8; O2SAT 97
[2023-12-24 20:47] VITALS: BP 111/65; PULSE 72; RESP 18; TEMP 97.3; O2SAT 97
[2023-12-25 10:27] VITALS: BP 125/69; PULSE 61; RESP 18; TEMP 97.2; O2SAT 98
[2023-12-25 20:30] VITALS: BP 135/94; PULSE 80; RESP 18; TEMP 98; O2SAT 99
[2023-12-25] MEDS: QUEtiapine FUMARATE 100 MG TABLET PO SCH (21:30)
[2023-12-26] MEDS: QUEtiapine FUMARATE 100 MG TABLET PO SCH (07:58)
[2023-12-26 10:26] VITALS: BP 118/77; PULSE 68; RESP 18; TEMP 97.9; O2SAT 98
[2023-12-26 22:05] VITALS: BP 130/67; PULSE 79; RESP 18; TEMP 98.6; O2SAT 97
[2023-12-27 08:08] VITALS: BP 133/79; PULSE 81; RESP 18; TEMP 97.2; O2SAT 95
[2023-12-27 21:23] VITALS: BP 126/78; PULSE 78; RESP 18; TEMP 97.9; O2SAT 99
[2023-12-28 09:05] VITALS: BP 117/68; PULSE 73; RESP 19; TEMP 98; O2SAT 99
[2023-12-28] MEDS: IBUPROFEN 400 MG TABLET PO PRN (09:10)
[2023-12-28 22:03] VITALS: BP 139/63; PULSE 76; RESP 17; TEMP 98; O2SAT 99
[2023-12-29 10:17] VITALS: BP 120/66; PULSE 88; RESP 18; TEMP 98; O2SAT 97
[2023-12-29] MEDS: ZOLPIDEM TARTRATE 10 MG TABLET PO PRN (21:21)
[2023-12-29 21:27] VITALS: BP 146/60; PULSE 76; RESP 18; TEMP 98; O2SAT 97
[2023-12-30 10:01] VITALS: BP 122/57; PULSE 79; RESP 19; TEMP 98.9; O2SAT 98
[2023-12-30 21:48] VITALS: BP 111/65; PULSE 72; RESP 18; TEMP 97.7; O2SAT 97
[2023-12-31 09:22] VITALS: BP 105/75; PULSE 75; RESP 19; TEMP 98.7; O2SAT 95
[2023-12-31 20:33] VITALS: BP 112/69; PULSE 81; RESP 18; TEMP 99.1; O2SAT 98
[2024-01-01 13:23] VITALS: BP 103/54; PULSE 17; RESP 18; O2SAT 98
[2024-01-01 22:14] VITALS: BP 123/70; PULSE 18; RESP 18; TEMP 98.1; O2SAT 99
[2024-01-02 09:59] VITALS: BP 126/63; PULSE 85; RESP 18; TEMP 97.5; O2SAT 96
[2024-01-02] MEDS: NICOTINE 14 MG/24 HOUR PATCH TD PRN (10:34)
[2024-01-02 20:52] VITALS: BP 120/70; PULSE 81; RESP 18; TEMP 97.2; O2SAT 97
[2024-01-03 09:30] VITALS: BP 162/74; PULSE 77; RESP 18; TEMP 97.8; O2SAT 99
[2024-01-03] MEDS ORDERED: HYDROCORTISONE 1% 30 GM OINTMENT TP PRN (20:45)
[2024-01-03 22:19] VITALS: BP 123/68; PULSE 80; RESP 18; TEMP 97.7; O2SAT 98
[2024-01-04 06:43] LABS: ANION GAP 9 mmol/L (8-16); CALCIUM, TOTAL 8.7 mg/dL (8.8-10.5); CARBON DIOXIDE 26 mmol/L (22-29); CHLORIDE 104 mmol/L (98-107); CREATININE 1.03 mg/dL (0.60-1.30); GLOMERULAR FILTR. RATE CALC > 60 mL/min (>60); GLUCOSE,RANDOM 99 mg/dL (70-110); POTASSIUM 4.9 mmol/L (3.5-5.1); SODIUM SERUM 139 mmol/L (136-145); UREA NITROGEN, BLOOD 32 mg/dL (7-18)
[2024-01-04 09:55] VITALS: BP 107/56; PULSE 78; RESP 17; TEMP 97; O2SAT 98
[2024-01-04] MEDS ORDERED: QUET100T PO ×2 (12:58)
[2024-01-04] MEDS ORDERED: HYDROCORTISONE 1% 30 GM OINTMENT TP SCH (17:00)
== END 2024-01-04 14:00 | disposition home or self-care (01) | DRG 885 ==
LOC: EMS 08:42 → 3EI 22:58 → 3EX 12-20 00:48
PROVIDERS: ADMIT Psychiatry & Neurology Child & Adolescent Psychiatry; ATTEND Psychiatry & Neurology Child & Adolescent Psychiatry
PROC: GZ56ZZZ Individual Psychotherapy, Supportive (ICD-10-PCS; principal; 2023-12-20)
PROC: GZHZZZZ Group Psychotherapy (ICD-10-PCS; 2023-12-20)
PROC: GZ52ZZZ Individual Psychotherapy, Cognitive (ICD-10-PCS; 2023-12-20)
DX: F25.1 Schizoaffective disorder, depressive type (principal); F11.20 Opioid dependence, uncomplicated; R45.851 Suicidal ideations; I10 Essential (primary) hypertension; Z20.822 Contact with and (suspected) exposure to COVID-19; F19.10 Other psychoactive substance abuse, uncomplicated; F12.10 Cannabis abuse, uncomplicated; F15.90 Other stimulant use, unspecified, uncomplicated; Z87.891 Personal history of nicotine dependence; Z91.148 Patient's other noncompliance with medication regimen for other reason
CPT/HCPCS: 80048; 80053; 80061; 80307; 81001; 83036; 84443; 85025; 99285; G0378; G0480

== ENCOUNTER 2024-01-16 17:49 | Inpatient (IN) | payer MEDICARE, MEDICAID ==
[~2024-01-16] VITALS: Ht 170.2 cm; Wt 84.9 kg
[~2024-01-16 17:49] MED LIST changes: -ACET-66 PO; -ESCI-8 PO; -IBUP-1554 PO; +QUET100T PO; -QUET100T34 PO
[2024-01-16 20:14] LABS: COVID AG,FIA SOURCE NASAL SWAB
[2024-01-16] MEDS: DiphenhydrAMINE HCL 50 MG/ML VIAL IM ONE (20:21)
[2024-01-16] MEDS: HALOPERIDOL LACTATE 5 MG/ML VIAL IM ONE (20:21)
[2024-01-16] MEDS: LORazepam 2 MG/ML VIAL IM ONE (20:21)
[2024-01-16 20:38] LABS: SARS-COV2 (COVID) ANTIGEN,FIA Negative (Negative)
[2024-01-17 10:06] LABS: BASOPHILS % (AUTO) 0.7 % (0.0-2.0); HEMATOCRIT 42.3 % (41-53); HEMOGLOBIN 13.9 g/dL (13.5-17.5); LYMPHOCYTES # (AUTO) 1.1 K/uL (1.0-4.8); LYMPHOCYTES % (AUTO) 18.1 % (22.0-44.0); MEAN CORPUSCULAR HEMOGLOBIN 30.8 pg (26.0-34.0); MEAN CORPUSCULAR HGB CONC 32.9 G/dL (31.0-37.0); MEAN CORPUSCULAR VOLUME 94 fL (80-100); MONOCYTES # (AUTO) 0.6 K/uL (0.1-1.0); MONOCYTES % (AUTO) 10.6 % (2.0-9.0); NEUTROPHILS % (AUTO) 66.6 % (40.0-70.0); PLATELET COUNT (AUTO) 269 K/uL (150-450); RED BLOOD CELL COUNT(AUTO) 4.52 MIL/uL (4.50-5.90); RED CELL DISTRIBUTION WIDTH 13.9 % (11.5-14.5)
[2024-01-17 10:13] LABS: ANION GAP 9 mmol/L (8-16); CALCIUM, TOTAL 8.2 mg/dL (8.8-10.5); CARBON DIOXIDE 28 mmol/L (22-29); CHLORIDE 108 mmol/L (98-107); CREATININE 1.27 mg/dL (0.60-1.30); GLOMERULAR FILTR. RATE CALC 56 mL/min (>60); GLUCOSE,RANDOM 89 mg/dL (70-110); POTASSIUM 4.6 mmol/L (3.5-5.1); SODIUM SERUM 144 mmol/L (136-145); UREA NITROGEN, BLOOD 40 mg/dL (7-18)
[2024-01-17 11:13] LABS: ALCOHOL, BLOOD (SERUM) < 3 mg/dL (0-10)
[2024-01-17 13:13] LABS: APPEARANCE,URINE CLEAR (CLEAR); BILIRUBIN,URINE NEGATIVE (NEGATIVE); COLOR,URINE YELLOW (YELLOW); GLUCOSE, URINE (UA) NEGATIVE (NEGATIVE); KETONES,URINE NEGATIVE (NEGATIVE); LEUKOCYTE ESTERASE ,URINE NEGATIVE (NEGATIVE); NITRATE,URINE NEGATIVE (NEGATIVE); OCCULT BLOOD,URINE NEGATIVE (NEGATIVE); PH,URINE 5.5 (5.0-8.0); PROTEIN,URINE 30-70 mg/dL (NEGATIVE); SPECIFIC GRAVITIY, URINE 1.028 (1.003-1.030); UROBILINOGEN,URINE <=1.0 mg/dL (<=1.0)
[2024-01-17 13:19] LABS: ALCOHOL, URINE DRUG SCREEN NEGATIVE (NEGATIVE); AMPHET/METH SCREEN,URINE POSITIVE (NEGATIVE); BARBITURATE SCREEN, URINE NEGATIVE (NEGATIVE); BENZODIAZEPINES SCREEN,URINE NEGATIVE (NEGATIVE); CANNABINOID SCREEN,URINE NEGATIVE (NEGATIVE); COCAINE SCREEN,URINE NEGATIVE (NEGATIVE); METHADONE SCREEN, URINE NEGATIVE (NEGATIVE); OPIATE SCREEN,URINE NEGATIVE (NEGATIVE); PHENCYCLIDINE SCREEN,URINE NEGATIVE (NEGATIVE)
[2024-01-17 13:24] LABS: PH,URINE DRUG SCREEN 5.5 (5.0-8.0)
[2024-01-17 13:56] VITALS: BP 129/79; PULSE 80; RESP 18; TEMP 96.8; O2SAT 80
[2024-01-17 22:45] VITALS: RESP 18
[2024-01-18 01:07] VITALS: RESP 18
[2024-01-18] MEDS: LORazepam 2 MG TABLET PO PRN (09:08)
[2024-01-18 11:05] VITALS: BP 135/64; PULSE 86; RESP 18; TEMP 96.7; O2SAT 100
[2024-01-18 11:07] VITALS: BP 135/64; PULSE 86; RESP 18; TEMP 96.7; O2SAT 100
[2024-01-18] MEDS: QUEtiapine FUMARATE 100 MG TABLET PO SCH (12:22)
[2024-01-18] MEDS ORDERED: LOPERAMIDE HCL 2 MG CAPSULE PO PRN (15:45)
[2024-01-18] MEDS ORDERED: PETROLATUM,WHITE 28 GM JELLY TP PRN (15:45)
[2024-01-18] MEDS ORDERED: DOCUSATE SODIUM 100 MG CAPSULE PO PRN (15:45)
[2024-01-18] MEDS ORDERED: ONDANSETRON 4 MG TABLET PO PRN (15:45)
[2024-01-18] MEDS ORDERED: ALBUTEROL SULFATE HFA 90 MCG/PUFF 8 GM INHALER IH PRN (15:45)
[2024-01-18] MEDS ORDERED: GuaiFENesin/D-METHORPHAN [SUGAR-FREE] 200-20MG/10 ML SYRUP UDCUP PO PRN (15:45)
[2024-01-18] MEDS ORDERED: MAGNESIUM HYDROXIDE SUSPENSION 30 ML UDCUP PO PRN (15:45)
[2024-01-18] MEDS ORDERED: MAG HYDROX/ALUMINUM HYD/SIMETH ES 30 ML SUSPENSION UDCUP PO PRN (15:45)
[2024-01-18] MEDS: QUEtiapine FUMARATE 200 MG TABLET PO SCH (22:00)
[2024-01-18 22:50] VITALS: BP 133/71; PULSE 86; RESP 18; TEMP 97.9; O2SAT 95
[2024-01-19 07:44] LABS: HEMOGLOBIN A1C 5.5 % (3.8-5.6)
[2024-01-19 07:51] LABS: THYROID STIMULATING HORMONE 0.8 uIU/mL (0.36-3.74)
[2024-01-19 08:00] VITALS: BP 130/61; PULSE 75; RESP 18; TEMP 97.3; O2SAT 96
[2024-01-19 08:05] LABS: CHOL/HDL RATIO 2.5 (4.2-7.3)
[2024-01-19 23:04] VITALS: BP 160/68; PULSE 75; RESP 18; TEMP 97.8; O2SAT 97
[2024-01-20 11:43] VITALS: BP 148/64; PULSE 73; RESP 16; TEMP 97; O2SAT 98
[2024-01-20 20:55] VITALS: BP 130/84; PULSE 87; RESP 18; TEMP 97.6; O2SAT 97
[2024-01-21 10:04] VITALS: BP 123/68; PULSE 89; RESP 18; TEMP 96.8; O2SAT 99
[2024-01-21 22:29] VITALS: BP 132/71; PULSE 74; RESP 18; TEMP 97.7; O2SAT 97
[2024-01-22 08:22] LABS: ANION GAP 7 mmol/L (8-16); CALCIUM, TOTAL 8.4 mg/dL (8.8-10.5); CARBON DIOXIDE 26 mmol/L (22-29); CHLORIDE 105 mmol/L (98-107); CREATININE 1.07 mg/dL (0.60-1.30); GLOMERULAR FILTR. RATE CALC > 60 mL/min (>60); GLUCOSE,RANDOM 108 mg/dL (70-110); POTASSIUM 4.9 mmol/L (3.5-5.1); SODIUM SERUM 138 mmol/L (136-145); UREA NITROGEN, BLOOD 34 mg/dL (7-18)
[2024-01-22 10:46] VITALS: BP 122/63; PULSE 77; RESP 18; TEMP 97.6; O2SAT 98
[2024-01-22 20:50] VITALS: BP 132/75; PULSE 87; RESP 18; TEMP 97.7
[2024-01-23 08:55] VITALS: BP 153/72; PULSE 82; RESP 18; TEMP 97.4
[2024-01-23 23:04] VITALS: BP 158/73; PULSE 80; RESP 18; TEMP 98; O2SAT 97
[2024-01-24 10:03] VITALS: BP 146/66; PULSE 71; RESP 18; TEMP 98.9
[2024-01-24] MEDS: ACETAMINOPHEN 325 MG TABLET PO PRN (10:03)
[2024-01-24 11:03] VITALS: BP 182/86; PULSE 86; RESP 19; TEMP 98.6; O2SAT 0
[2024-01-24] MEDS ORDERED: INFLUENZA VIRUS VACCINE TVS (6MO+) 2024-25/PF 45 MCG/0.5 ML SYRINGE IM. ONE (15:45)
[2024-01-24] MEDS: CloNIDine HCL 0.1 MG TABLET PO PRN (18:37)
[2024-01-24 21:12] VITALS: BP 142/78; PULSE 77; RESP 18; TEMP 97.6; O2SAT 98
[2024-01-25 10:30] VITALS: BP 133/63; PULSE 74; RESP 19; TEMP 97.7; O2SAT 97
[2024-01-25 12:18] VITALS: BP 138/67; PULSE 81; RESP 18; TEMP 98; O2SAT 96
[2024-01-25] MEDS: IBUPROFEN 400 MG TABLET PO PRN (12:18)
[2024-01-25] MEDS: ZOLPIDEM TARTRATE 10 MG TABLET PO PRN (21:15)
[2024-01-25 21:42] VITALS: BP 146/83; PULSE 79; RESP 18; TEMP 97.8; O2SAT 98
[2024-01-26 09:13] VITALS: BP 143/68; PULSE 78; RESP 17; TEMP 96.6; O2SAT 98
[2024-01-26 21:45] VITALS: BP 155/78; PULSE 78; RESP 18; TEMP 98.9; O2SAT 98
[2024-01-27 08:34] VITALS: BP 120/54; PULSE 76; RESP 18; TEMP 98.1; O2SAT 97
[2024-01-27] MEDS: HALOPERIDOL 5 MG TABLET PO PRN (18:21)
[2024-01-27 21:47] VITALS: BP 137/69; PULSE 71; RESP 16; TEMP 98.3; O2SAT 98
[2024-01-28 09:13] VITALS: BP 156/66; PULSE 74; RESP 20; TEMP 98.1; O2SAT 98
[2024-01-28 13:27] VITALS: BP 132/72; PULSE 86; RESP 18; O2SAT 97
[2024-01-28 20:06] VITALS: BP 142/77; PULSE 84; RESP 18; TEMP 98.1; O2SAT 97
[2024-01-29 09:58] VITALS: BP 144/71; PULSE 81; RESP 18; TEMP 96.8; O2SAT 100
[2024-01-29 20:24] VITALS: BP 166/73; PULSE 80; RESP 18; TEMP 98.4; O2SAT 97
[2024-01-30 09:34] VITALS: BP 138/70; PULSE 74; RESP 18; TEMP 98.1; O2SAT 99
[2024-01-30 16:28] VITALS: BP 135/69; PULSE 89; RESP 20; O2SAT 98
[2024-01-30 20:53] VITALS: BP 150/75; PULSE 75; RESP 18; TEMP 98.6; O2SAT 75
[2024-01-31 08:34] VITALS: BP 115/64; PULSE 84; RESP 18; TEMP 98.8; O2SAT 96
[2024-01-31 09:34] VITALS: BP 110/60; PULSE 76; RESP 18; TEMP 98.2; O2SAT 98
[2024-01-31 16:31] VITALS: BP 135/80; RESP 18; O2SAT 100
[2024-01-31 20:35] VITALS: BP 129/73; PULSE 76; RESP 18; TEMP 97.8; O2SAT 97
[2024-02-01 06:30] VITALS: BP 130/83; PULSE 81; RESP 19; TEMP 98; O2SAT 98
[2024-02-01 11:05] VITALS: BP 120/57; PULSE 76; RESP 18; TEMP 98.3; O2SAT 99
[2024-02-01] MEDS: NICOTINE 14 MG/24 HOUR PATCH TD PRN (17:52)
[2024-02-01 20:41] VITALS: BP 145/79; PULSE 77; RESP 18; TEMP 97.4; O2SAT 97
[2024-02-02 08:54] VITALS: BP 133/68; PULSE 75; RESP 20; TEMP 98.4; O2SAT 95
[2024-02-02 08:55] VITALS: BP 133/68; PULSE 75; PULSE 97; RESP 20; TEMP 98.4; O2SAT 95
[2024-02-02 09:54] VITALS: BP 133/69; PULSE 78; RESP 18; TEMP 98.4; O2SAT 97
[2024-02-02 20:55] VITALS: BP 104/48; PULSE 90; RESP 17; TEMP 98; O2SAT 96
[2024-02-03 09:58] VITALS: BP 153/79; PULSE 77; RESP 18; TEMP 98.3; O2SAT 97
[2024-02-03 11:19] LABS: COVID AG,FIA SOURCE NASAL SWAB
[2024-02-03 11:42] LABS: SARS-COV2 (COVID) ANTIGEN,FIA Negative (Negative)
[2024-02-03 21:23] VITALS: BP 136/75; PULSE 86; RESP 18; TEMP 98.2; O2SAT 98
== END 2024-02-04 10:03 | DRG 885 ==
LOC: EMS 17:51 → 3EX 01-17 16:42
PROVIDERS: ADMIT Psychiatry & Neurology Child & Adolescent Psychiatry; ATTEND Psychiatry & Neurology Child & Adolescent Psychiatry
PROC: GZ56ZZZ Individual Psychotherapy, Supportive (ICD-10-PCS; principal; 2024-01-18)
PROC: GZHZZZZ Group Psychotherapy (ICD-10-PCS; 2024-01-18)
DX: F25.0 Schizoaffective disorder, bipolar type (principal); R45.851 Suicidal ideations; F41.9 Anxiety disorder, unspecified; F17.200 Nicotine dependence, unspecified, uncomplicated; I10 Essential (primary) hypertension; Z20.822 Contact with and (suspected) exposure to COVID-19; F15.10 Other stimulant abuse, uncomplicated; F10.10 Alcohol abuse, uncomplicated; F32.A Depression, unspecified; Z79.899 Other long term (current) drug therapy
CPT/HCPCS: 70450; 80048; 80061; 80307; 81003; 83036; 84443; 85025; 99285; G0378; G0480; J1200; J1630; J2060